=== PATIENT | male | born 1975 | race Caucasian/White ===

== ENCOUNTER → 2018-03-21 | Outpatient (CLI) | payer OTHER ==
[~2018-03-21] MED LIST: GADAVIST IV PRN
--- NOTE | 2018-03-21 11:11 | DIAGNOSTIC IMAGING REPORT ---
THORACIC SPINE COMBO HISTORY: Pain. Neuropathy. R20.0 MooxnrbvW21.9 YtnjqlradyR14.9 Mid back [id number] TECHNIQUE: Multiplanar multisequence MRI of the thoracic spine was performed both before and after the intravenous administration of contrast. COMPARISON: None. FINDINGS: Alignment and curvature are intact. No fracture or subluxation. No significant central canal or neural foraminal narrowing. Normal signal characteristics of the vertebral bodies, disc side, as well as thoracic spinal cord. No abnormal postcontrast enhancement IMPRESSION: Normal study The above report was generated using voice recognition software. It may contain grammatical, syntax or spelling errors. Electronically signed by: Tung Hurst M.D. 03/21/2018 11:10 AM Dictated Date/Time: 03/21/2018 11:07 AM
== END | disposition home or self-care (01) ==
LOC: C.MRI 09:28
PROVIDERS: ATTEND Family Medicine
DX: G95.9 Disease of spinal cord, unspecified (principal); M54.9 Dorsalgia, unspecified; R20.0 Anesthesia of skin